=== PATIENT | male | born 1940 | race Caucasian/White ===

== ENCOUNTER 2016-11-20 00:13 | Inpatient (IN) | payer MEDICARE, OTHER ==
[~2016-11-20] VITALS: Ht 180.3 cm; Wt 91.6 kg
[~2016-11-20 00:13] MED LIST: ALDACTONE 25MG25 MG PO; ANTIVERT 25MG T25 MG PO; ANUSOL-HC25 MG PR; ASPIR 8181 MG PO; CEFUROXIME500 MG PO; CENTRUM SILVER1 EAC1 PO; COLACE 100MG C100 MG PO; ELIQUIS 2.5 MG2.5 MG PO; FERROUS GLUCON324 M1 PO; FIBERCON 625 M625 MG PO; FLOMAX 0.4 MG0.4 MG PO; GLUCERNA237 ML PO; IMDUR ER TAB 3030 MG PO; JANUVIA100 MG PO; LANTUS100 UNIT/1 SQ; LASIX 40 MG TAB40 MG PO; LEVAQUIN TAB 5500 MG PO; LOPRESSOR 25 MG25 MG PO; MIRALAX17 GM PO; OMEPRAZOLE40 MG PO; PRADAXA 150 MG150 MG PO; SIMETHICONE80 MG PO; TENORMIN 25 MG25 MG PO; TYLENOL W/CODEIN1 E1 PO; VITAMIN B-121000 MC3 PO; WELCHOL625 MG PO; ZOFRAN4 MG PO; ZYLOPRIM 100 M100 MG PO
[2016-11-20 01:10] LABS: HEMOGLOBIN 12.1 gm/dl (14.0-17.5); RED BLOOD COUNT 4.03 M/UL (4.20-5.50); WHITE BLOOD COUNT 10.4 K/UL (4.5-11.0)
[2016-11-20] MEDS ORDERED: TYLENOL 325MG325 MG PO (13:55)
[2016-11-20] MEDS ORDERED: FERROUS SULFAT325 M2 PO (13:59)
[2016-11-21 04:23] LABS: HEMOGLOBIN 11.6 gm/dl (14.0-17.5); RED BLOOD COUNT 3.81 M/UL (4.20-5.50); WHITE BLOOD COUNT 8.3 K/UL (4.5-11.0)
[2016-11-22 04:24] LABS: HEMOGLOBIN 10.8 gm/dl (14.0-17.5); RED BLOOD COUNT 3.64 M/UL (4.20-5.50); WHITE BLOOD COUNT 9.1 K/UL (4.5-11.0)
[2016-11-23 03:44] LABS: HEMOGLOBIN 10.5 gm/dl (14.0-17.5); RED BLOOD COUNT 3.51 M/UL (4.20-5.50)
[2016-11-23] MEDS ORDERED: LASIX40 MG PO (11:05)
[2016-11-23] MEDS ORDERED: OMNICEF 300 MG300 MG PO (11:06)
[2016-11-23] MEDS ORDERED: IPRAT-ALBUT 0.5-3 ML INH (11:21)
== END 2016-11-23 12:19 | disposition home or self-care (01) | DRG 871 ==
LOC: ER1 00:13 → ZEROF 05:42 → PROG CARE 12:15
PROVIDERS: Emergency Medicine; Internal Medicine; Physician Assistant; ADMIT Internal Medicine
DX: A41.9 Sepsis, unspecified organism (principal); I50.23 Acute on chronic systolic (congestive) heart failure; J18.9 Pneumonia, unspecified organism; J96.21 Acute and chronic respiratory failure with hypoxia; N17.9 Acute kidney failure, unspecified; E86.0 Dehydration; D63.8 Anemia in other chronic diseases classified elsewhere; C67.9 Malignant neoplasm of bladder, unspecified; J84.10 Pulmonary fibrosis, unspecified; B96.20 Unspecified Escherichia coli [E. coli] as the cause of diseases classified elsewhere; N18.9 Chronic kidney disease, unspecified; R55 Syncope and collapse; I25.10 Atherosclerotic heart disease of native coronary artery without angina pectoris; I48.0 Paroxysmal atrial fibrillation; I25.5 Ischemic cardiomyopathy; I71.4 Abdominal aortic aneurysm, without rupture; Z95.1 Presence of aortocoronary bypass graft; Z98.890 Other specified postprocedural states; Z95.810 Presence of automatic (implantable) cardiac defibrillator; Z79.01 Long term (current) use of anticoagulants; Z86.73 Personal history of transient ischemic attack (TIA), and cerebral infarction without residual deficits; Z86.74 Personal history of sudden cardiac arrest
CPT/HCPCS: ECHO; 36415; 70450; 71010; 80048; 80053; 80202; 81001; 82009; 82550; 82553; 82962; 83036; 83605; 83690; 83735; 83874; 83880; 84484; 85025; 85027; 85379; 85610; 85730; 87040; 87070; 87077; 87086; 87186; 87205; 93005; 93306; 93880; 94640; 94664; 96365; 96375; 99285; J0456; J0692; J1580; J1940; J2270; J2405; J3370; J7050; J7070; Q9963

== ENCOUNTER → 2016-12-06 | Outpatient (CLI) | payer MEDICARE, OTHER ==
[~2016-12-06] MED LIST changes: +FERROUS SULFAT325 M2 PO; +IPRAT-ALBUT 0.5-3 ML INH; +LASIX40 MG PO; +OMNICEF 300 MG300 MG PO; +TYLENOL 325MG325 MG PO
[2016-12-06 14:42] LABS: HEMOGLOBIN 11.9 gm/dl (14.0-17.5); RED BLOOD COUNT 4.01 M/UL (4.20-5.50); WHITE BLOOD COUNT 9.4 K/UL (4.5-11.0)
[2016-12-06 14:57] LABS: BUN/CREATININE RATIO 18 (0-10)
== END ==
LOC: LAB 13:35
PROVIDERS: Nurse Practitioner Family
DX: I11.0 Hypertensive heart disease with heart failure (principal); I50.9 Heart failure, unspecified; D64.9 Anemia, unspecified; R31.9 Hematuria, unspecified; E87.4 Mixed disorder of acid-base balance
CPT/HCPCS: 36415; 80053; 83540; 83550; 83880; 85025